=== PATIENT | male | born 1975 ===

== ENCOUNTER 2021-03-14 04:09 | Emergency (ER) | payer SELFPAY ==
[2021-03-14 04:24] VITALS: BP 140/90
[2021-03-14] MEDS ORDERED: ONDANSETRON 4 MG ODT TAB PO ONE (05:17)
[2021-03-14] MEDS ORDERED: HYDROcodone/ACETAMINOPHEN 7.5-325MG TAB PO ONE (05:17)
[2021-03-14] MEDS ORDERED: IBUPROFEN 600 MG TAB PO ONE (05:17)
[2021-03-14] MEDS: TETANUS,DIPH,PERTUSS(ACELL) VACCINE 0.5 ML SYRINGE IM ONE ×2 (06:12→06:56)
[2021-03-14] MEDS: LIDOCAINE-MPF (1%) 10 MG/1 ML VIAL 5 ML INFILTRATI ONE ×2 (06:13→06:57)
[2021-03-14] MEDS: ceFAZolin 1 GM VIAL IM ONE ×2 (06:13→06:56)
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
--- NOTE | 2021-03-16 08:21 | XRay Report ---
RIGHT XR hand 3+V RT INDICATION / CLINICAL INFORMATION: swelling and pain COMPARISON: None available. FINDINGS: AP lateral views of the right hand demonstrate a moderately comminuted boxer's fracture of the distal small finger metacarpal with mild palmar angulation. IMPRESSION: 1. Comminuted fractured distal small finger metacarpal mild palmar angulation. Signer Name: Jules Pinedo II, MD Signed: 03/14/2021 5:12 AM Workstation Name: [id number]
== END 2021-03-14 07:15 | disposition home or self-care (01) ==
LOC: ED 04:09
DX: S62.336B Displaced fracture of neck of fifth metacarpal bone, right hand, initial encounter for open fracture (principal); Z79.899 Other long term (current) drug therapy; Y04.8XXA Assault by other bodily force, initial encounter; Y93.89 Activity, other specified; Y92.89 Other specified places as the place of occurrence of the external cause; Y99.8 Other external cause status
CPT/HCPCS: 90715; 99283; 99284; J3490; J0690; Q0162